=== PATIENT | male | born 1950 | race African-American/Black ===

== ENCOUNTER 2016-06-11 13:21 | Emergency (ER) | payer SELFPAY ==
[~2016-06-11] VITALS: Wt 73.0 kg
== END 2016-06-11 13:43 | disposition left against medical advice (07) ==
LOC: E/R 13:21
DX: Z53.21 Procedure and treatment not carried out due to patient leaving prior to being seen by health care provider (principal)

== ENCOUNTER 2017-04-04 18:00 | Inpatient (IN) | END 2017-04-16 20:03 | DRG 305 ==